=== PATIENT | female | born 1980 | race African-American/Black ===

== ENCOUNTER 2018-10-30 11:03 | Emergency (ER) | payer BC ==
[2018-10-30] MEDS: ONDANSETRON (ODT) 4 MG TAB ODT (11:34)
[2018-10-30] MEDS: HYDROCODONE/APAP (5/325) TAB PO (11:34)
== END 2018-10-30 13:41 | disposition home or self-care (01) ==
LOC: FTE 11:03
DX: S89.91XA Unspecified injury of right lower leg, initial encounter (principal); W10.9XXA Fall (on) (from) unspecified stairs and steps, initial encounter; Y92.9 Unspecified place or not applicable
CPT/HCPCS: 73562; 73610-RT; 81025; 99283-25